=== PATIENT | male | born 1965 | race Caucasian/White ===

== ENCOUNTER 2024-11-15 19:22 | Emergency (ER) | payer BC, SELFPAY ==
[2024-11-15 19:24] VITALS: BP 146/102
[2024-11-15 19:56] LABS: Urine Character Clear (Clear)
[2024-11-15 19:57] LABS: Hematocrit 43.6 % (39.0-52.0); Hemoglobin 14.7 g/dL (13.0-18.0); Mean Corp Hgb Conc. 33.7 g/dL (33.0-37.0); Mean Corpuscular Volume 88.3 fL (80.0-94.0); Nucleated Red Blood Cells % 0 % (-); Platelet Count 245 10^3/uL (130-400); Red Cell Dist. Width 14.1 % (11.5-14.5)
[2024-11-15 20:08] LABS: Urine Red Blood Cell 40-50 /HPF (0-2); Urine Squamous Cell 0-2 /LPF (Few)
[2024-11-15 20:10] LABS: ALT (SGPT) 31 U/L (0-50); AST (SGOT) 27 U/L (17-59); Albumin 4.8 g/dl (3.5-5.0); Alkaline Phosphatase 91 U/L (38-126); Blood Urea Nitrogen 23 mg/dl (9-20); Calcium 9.9 mg/dl (8.4-10.2); Carbon Dioxide 28 mmol/L (22-30); Chloride 106 mmol/L (98-107); Glucose 126 mg/dl (70-99); Potassium 4.4 mmol/L (3.5-5.1); Sodium 140 mmol/L (135-145); Total Protein 8.2 g/dl (6.3-8.2); eGFR > 60.00
[2024-11-15] MEDS: ROXICODONE 5 MG PO (23:00)
[2024-11-15] MEDS: TORADOL 30 MG IM (23:00)
[2024-11-15 23:03] VITALS: BMI 40.1
[2024-11-15 23:50] VITALS: BP 165/80
--- NOTE | 2024-11-16 00:39 | ED.GENMED ---
History of Present Illness
General
Chief Complaint: Back Pain
Time Seen by Provider: 11/15/24 22:39
History of Present Illness
History of Present Illness:
59-year-old male presents to the emergency department for evaluation of left flank pain for the past several days. Saw his urologist as an outpatient earlier this week and was ordered a CT scan but has not yet obtained this. Pain increased today
despite ibuprofen use. Has a history of frequent recurrent kidney stones, states he has passed stones his largest 10 mm in the past. Is never required stenting
Review of Systems
Review of Systems
Allergies reviewed?: Yes
All Other Systems: ROS reviewed and negative except as documented in HPI and ROS
Phy Exam
Physical Exam
Physical Exam:
GEN: Well appearing, NAD, WDWN
HEENT: Oral mucosa moist, no scleral icterus
Cardiac: Regular rate
Lung: No respiratory distress, no tachypnea
MSK: No gross deformity or injuries
Skin: Good color, no pallor or jaundice, no rashes
Neuro: AO x3, moves all extremities freely
Psych: Calm, cooperative
Course
Orders/Labs/Results
Orders:
Orders
11/15/24 19:42
Complete Blood Count/With Diff Urgent
Comprehensive Metabolic Panel Urgent
Urinalysis Reflex To Culture Urgent
Date Specimen was Collected: 11/15/24
Time Specimen was Collected: 19:28
Urine Microscopic Reflex Cult Urgent
11/15/24 22:40
CT Abd/pel Without Iv Or Oral Urgent
Comment:
Reason For Exam: Flank pain
11/15/24 22:54
Ketorolac [Toradol] 30 mg IM NOW STA
Oxycodone [Roxicodone] 5 mg PO NOW STA
Abnormal Lab Results
11/15/24
19:42
WBC 15.6 H 10^3/uL
(4.8-10.8)
Abs Immat Gran (auto) 0.1 H 10^3/uL
(0-0.05)
Absolute Neuts (auto) 12.8 H 10^3/uL
(1.4-6.5)
Absolute Monos (auto) 0.8 H 10^3/uL
(0.1-0.6)
Neutrophils % 82.6 H %
(42.2-75.2)
Lymphocytes % 11.3 L %
(20.5-51.1)
BUN 23 H mg/dl
(9-20)
Glucose 126 H mg/dl
(70-99)
Ur Occult Blood Reflex 4+ A
(Negative)
Urine RBC 40-50 A /HPF
(0-2)
Urine Albumin (Reflex) 1+ A
(Neg - Trace)
11/15/24 19:42
11/15/24 19:42
Vital Signs
Initial and Last Documented VS:
Initial Vital Signs
Temp Pulse Resp BP Pulse Ox
99.3 F 90 18 146/102 97
11/15/24 19:24 11/15/24 19:24 11/15/24 19:24 11/15/24 19:24 11/15/24 19:24
Last Documented Vital Signs
Temp Pulse Resp BP Pulse Ox
99.3 F 79 18 165/80 98
11/15/24 19:24 11/15/24 23:50 11/15/24 19:24 11/15/24 23:50 11/16/24 00:40
MDM/Problems Addressed
MDM/Problems Addressed:
Imaging reveals a large stone measuring 10 x 8 x 11 mm. The patient was offered admission for ureteral stenting however he declines as he would prefer to follow-up with his outpatient urologist. Given that his pain is well-controlled with just 2
doses of medicine this is reasonable. Will continue Flomax and I provided him with Toradol and oxycodone for home use. ED return parameters discussed
*Pulse Oximetry
SaO2: 98
Patient hypoxic: no
*Critical Care Note
Total Time (30-74mins, 75-104mins- exclusive of procedures): Not Applicable
ED Attending Note
-
Portions of this chart may have been created with voice recognition software.� Occasional wrong word or��sound alike� substitutions may have occurred due to the inherent limitations of voice recognition software.
Discharge Plan
Departure
Patient Disposition: Home (Routine Discharge)
Date of Disposition: 11/16/24
Time of Disposition: 00:39
Patient with high blood pressure during this ER visit?: No
Discharge Problem:
Ureterolithiasis
Instructions: Kidney stones in adults - ED discharge instructions
Prescriptions:
New
oxycodone 5 mg tablet
5 mg PO TID PRN (Reason: Pain) Qty: 10 0RF
ketorolac 10 mg tablet
10 mg PO Q8H PRN (Reason: Pain) Qty: 15 0RF
Rx Instructions:
maximum total duration of 5 days from all oral, intranasal, or parenteral formulations
Referrals:
Joey Allen DO [Family Provider, Family Practice]
Activity Restrictions/Additional Instructions:
You have a 11 x 8 x 10mm stone. Please follow up with your urologist for this, or return to the ER if your symptoms worsen
Interventions
Interventions:
*Risk Screen - Suicide Last Done: 11/15/24 19:28
*General Assessment Last Done: 11/15/24 23:04
*Neglect/Abuse Screening Last Done: 11/15/24 19:28
*ED- Fall Risk Assessment Last Done: 11/15/24 23:04
*ED COVID-19 Vaccine History Last Done: 11/15/24 23:04
*Nursing Disposition Last Done: 11/16/24 00:53
ED-Musculoskeletal Assessment Last Done: 11/15/24 23:04
Discharge Date and Time
Discharge Date/Time: 11/16/24 00:57
Print Language: LEBANESE
== END 2024-11-16 00:57 | disposition home or self-care (01) ==
LOC: EMR 19:22
PROVIDERS: Emergency Medicine; EMERGENCY PHYSICIAN Emergency Medicine; FAMILY PHYSICIAN Family Medicine Adult Medicine
DX: N20.2 Calculus of kidney with calculus of ureter (principal); Z87.442 Personal history of urinary calculi
CPT/HCPCS: 99285; 96372; 74176; 80053; 81003; 81015; 85025

== ENCOUNTER 2024-11-16 20:38 | Inpatient (IN) | payer BC, SELFPAY ==
[2024-11-16 16:33] VITALS: BP 159/87
[2024-11-16 19:05] VITALS: BMI 41.2
[2024-11-16 19:07] VITALS: BP 124/82
[2024-11-16] MEDS: ZOFRAN 4 MG IV (19:18)
[2024-11-16] MEDS: TORADOL 15 MG IV (19:19)
[2024-11-16 19:23] LABS: Hematocrit 40.8 % (39.0-52.0); Hemoglobin 13.6 g/dL (13.0-18.0); Mean Corp Hgb Conc. 33.3 g/dL (33.0-37.0); Mean Corpuscular Volume 90.1 fL (80.0-94.0); Nucleated Red Blood Cells % 0 % (-); Platelet Count 193 10^3/uL (130-400); Red Cell Dist. Width 14.1 % (11.5-14.5)
[2024-11-16 19:41] LABS: Blood Urea Nitrogen 32 mg/dl (9-20); Calcium 8.8 mg/dl (8.4-10.2); Carbon Dioxide 24 mmol/L (22-30); Chloride 106 mmol/L (98-107); Estimated Creatinine Clearance 56 ml/min; Glucose 102 mg/dl (70-99); Sodium 136 mmol/L (135-145); eGFR 52.64
--- NOTE | 2024-11-16 19:50 | ED.GENMED ---
History of Present Illness
General
Chief Complaint: Flank Pain
Source: patient
Exam Limitations: none
Time Seen by Provider: 11/16/24 18:51
Nursing documentation reviewed up to this point in time: agreed with
History of Present Illness
History of Present Illness:
59-year-old male past medical history of hypertension hyperlipidemia presenting to the emergency department today with concerns of ongoing discomfort. Has a known 1 cm ureteral stone. Was here 1 day ago where this was confirmed on CT scan. Was
treated with medications and symptoms were controlled at time of discharge previously. At home he had difficulty tolerating symptoms which prompted him to return further assessment.
Review of Systems
Review of Systems
Allergies reviewed?: Yes
All Other Systems: ROS reviewed and negative except as documented in HPI and ROS
Phy Exam
Physical Exam
Physical Exam:
GENERAL: Alert , in no apparent distress
EYE: pupils equal and reactive
NECK: Supple, no significant adenopathy.
ENT: o/p clr, mmm.
CARDIAC: Regular rate and rhythm .
LUNGS: Clear breath sounds bilaterally, no acute respiratory distress, no wheezes/rales/rhonchi
ABDOMEN: Soft, without focal tenderness, no r/g, no cvat
NEUROLOGICAL: Alert and oriented, no focal neuro deficits
SKIN: Warm and dry, skin intact.
MUSCULOSKELETAL: No edema, well perfused.
PSYCH: Normal and appropriate interaction.
Course
Orders/Labs/Results
Orders:
Orders
11/16/24 19:16
Ketorolac [Toradol] 15 mg .ROUTE .STK-MED ONE
Ondansetron Injectable [Zofran] 4 mg .ROUTE .STK-MED ONE
11/16/24 19:17
Basic Metabolic Panel Urgent
Complete Blood Count/With Diff Urgent
11/16/24 19:18
Ondansetron Injectable [Zofran] 4 mg IV NOW STA
11/16/24 19:19
Ketorolac [Toradol] 15 mg IV NOW STA
11/16/24 19:53
0.9% Sodium Chloride 1000 ml [Nss] 1,000 ml IV BOLUS
Abnormal Lab Results
11/16/24
19:17
WBC 11.8 H 10^3/uL
(4.8-10.8)
RBC 4.53 L 10^6/uL
(4.70-6.10)
MPV 10.7 H fL
(7.4-10.4)
Absolute Neuts (auto) 8.3 H 10^3/uL
(1.4-6.5)
Absolute Monos (auto) 0.9 H 10^3/uL
(0.1-0.6)
Lymphocytes % 19.7 L %
(20.5-51.1)
BUN 32 H mg/dl
(9-20)
Creatinine 1.5 H mg/dL
(0.7-1.3)
Glucose 102 H mg/dl
(70-99)
11/16/24 19:17
11/16/24 19:17
Vital Signs
Initial and Last Documented VS:
Initial Vital Signs
Temp Pulse Resp BP Pulse Ox
98.2 F 76 18 159/87 96
11/16/24 16:33 11/16/24 16:33 11/16/24 16:33 11/16/24 16:33 11/16/24 16:33
Last Documented Vital Signs
Temp Pulse Resp BP Pulse Ox
98.2 F 76 18 124/82 96
11/16/24 16:33 11/16/24 16:33 11/16/24 16:33 11/16/24 19:07 11/16/24 19:51
MDM/Problems Addressed
MDM/Problems Addressed:
59-year-old male presenting with concern of severe flank pain associated nausea. He has a known 1 cm ureteral stone. Symptoms poorly controlled at home despite adequate medications with opioid pain medication NSAID and Zofran. Concerning this
plan to admit. Case was discussed with urology that recommended n.p.o. overnight for likely stenting tomorrow morning.
*Pulse Oximetry
SaO2: 96
Oxygen Mode of Delivery: Room air
Patient hypoxic: no (96)
*Critical Care Note
Total Time (30-74mins, 75-104mins- exclusive of procedures): Not Applicable
ED Attending Note
-
Portions of this chart may have been created with voice recognition software.� Occasional wrong word or��sound alike� substitutions may have occurred due to the inherent limitations of voice recognition software.
Discharge Plan
Departure
Patient Disposition: Admit
Date of Disposition: 11/16/24
Time of Disposition: 20:00
Admit to: Med/Surg
Admit to doctor: Afia
Presentation/result/management discussed w/ accepting MD/DO: Hospitalist
Patient with high blood pressure during this ER visit?: No
Condition: Good
Covid-19: Not Applicable
Discharge Problem:
Ureterolithiasis
Prescriptions:
No Action
oxycodone 5 mg tablet
5 mg PO TID PRN (Reason: Pain) Qty: 10 0RF
ketorolac 10 mg tablet
10 mg PO Q8H PRN (Reason: Pain) Qty: 15 0RF
Rx Instructions:
maximum total duration of 5 days from all oral, intranasal, or parenteral formulations
Referrals:
Joey Allen DO [Family Provider, Family Practice]
Interventions
Interventions:
*Risk Screen - Suicide Last Done: 11/16/24 16:35
*General Assessment Last Done: 11/16/24 16:33
*Neglect/Abuse Screening Last Done: 11/16/24 19:04
*ED- Fall Risk Assessment Last Done: 11/16/24 19:04
*ED COVID-19 Vaccine History Last Done: 11/16/24 19:04
FC-Hethxb-Csnxizvpzu Assessment Last Done: 11/16/24 19:12
ED-Male Genitourinary Assessment Last Done: 11/16/24 19:12
Discharge Date and Time
Print Language: UKRAINIAN
--- NOTE | 2024-11-16 20:00 | HPS.HSE ---
Family Physician
-
Family Physician: Joey Allen
Chief Complaint
-
left flank pain associated with nausea
History of Present Illness
59-year-old male past medical history of hypertension hyperlipidemia, BPH, asthma, BERNABE presenting to the emergency department today with concerns of left flank pain for past 5-6 days. patient stated nausea and retching. he complained of chills. he
is been dealing with URI for past several week for which he was recently put on doxycycline. denied fever. denied MUNOZ, dizzy or syncope. denied abdominal pain,n,v,d. denied dysuria or hematuria.
CT with the impression of 10 x 8 x 11 mm calculus in the proximal left ureter with moderate left renal collecting system dilatation and perinephric stranding.Bilateral nonobstructing renal calculi.Colonic diverticulosis.Likely mildly enlarged
prostate gland.
Patient received a dose of Toradol, #, Zofran in ER. Admitted for further management
Medical History
Past Medical History
Past Medical History: Reports Other
Additional Past Medical History:
Hypertension
BERNABE
Hyperlipidemia
Past Surgical History: Reports Other
Additional Past Surgical History:
You book: Inguinal hernia repair
Lumbar spine surgery
Cervical spine surgery
Cyst removed from the back
Richey tooth extraction
Social History
Tobacco: Non-smoker
Alcohol: None
Drug: None
Living: With Family
Family History
Family History: Not pertinent
Allergies / Home Medications
Allergies reflects when Allergies were last updated in [employer].
Home Medications with original date entered in [employer]
Allergy/Medication List:
Allergies
Allergy/AdvReac Type Severity Reaction Status Date / Time
No Known Allergies Allergy Unverified 11/16/24 16:33
Home Medications
ketorolac 10 mg tablet 10 mg PO Q8H PRN Pain #15 tabs 11/16/24
oxycodone 5 mg tablet 5 mg PO TID PRN Pain #10 tabs 11/16/24
Review of Systems
-
Constitutional: Reports No Symptoms
EENT: Reports No Symptoms
Respiratory: Reports No Symptoms
Cardiac: Reports No Symptoms
Abdomen/GI: Reports Nausea
: Reports Flank Pain
Musculoskeletal: Reports No Symptoms
Skin: Reports No Symptoms
Neurological: Reports No Symptoms
Endocrine: Reports No Symptoms
Hematologic/Lymphatic: Reports No Symptoms
Psych: Reports No Symptoms
Physical Exam
Vital Signs
Vital Signs
Temp Pulse Resp BP Pulse Ox
98.2 F 76 18 124/82 96
11/16/24 16:33 11/16/24 16:33 11/16/24 16:33 11/16/24 19:07 11/16/24 19:51
Physical Exam
General: Well Developed, Well Nourished and No Apparent Distress
HEENT: NormoCephalic, Moist mucous membranes and Atraumatic
Respiratory: Clear
Cardiac: S1/S2 and Regular Rhythm; No Murmur or Rub
GI: Soft, Non Tender, Non Distended and Normal Bowel Sounds; No Organomegaly
Rectal: Deferred by Provider
Musculoskeletal: No Clubbing, No Cyanosis and No Edema
Skin: No Rash
Neuro: AO x 3 and Nonfocal/grossly intact
Psych: Calm
Laboratory Results
-
11/16/24 19:17
11/16/24 19:17
Laboratory Results
Total Bilirubin Cancelled 11/16/24 19:17
AST Cancelled 11/16/24 19:17
ALT Cancelled 11/16/24 19:17
Alkaline Phosphatase Cancelled 11/16/24 19:17
Data Reviewed
-
CT Scan: Report Reviewed by me
Lab Data: Labs Reviewed by me
Impression/Plan
-
# Left ureter ureteral stone
- Will keep patient n.p.o. after midnight
- Plan for stent in the morning
- Dilaudid as needed for pain
- Strain urine
- Flomax continue
- Urology consulted
- WBC 11.8
- CT with impression of 10 x 8 x 11 mm calculus in the proximal left ureter with moderate left renal collecting system dilatation and perinephric stranding.Bilateral nonobstructing renal calculi.
# Acute kidney injury likely from dehydration/ureteral stone
- Creatinine 1.5, BUN 32
- Fluids continued
- Monitor BMP in a.m.
# BPH
- Tadalafil and Flomax continued
# History of asthma
- Patient not in acute exacerbation
- Singulair continue
# Hyperlipidemia
- Zetia continued
# Essential hypertension
- Norvasc continue with hold parameters
- Hold irbesartan due to RAVINDER
# Back pain
- Gabapentin continue
#URI
-doxy continued
# DVT prophylaxis
- SCDs
# CODE STATUS
- Full code
--- NOTE | 2024-11-16 20:01 | W.PN.UPDATE ---
Update Note
Progress Note Update
Patient seen in conjunction with CLEANING TECHNICIAN. I agree with the findings and history vehicle. I concur with assessment and plan listed otherwise.
Briefly, this is a 59-year-old with past medical history of hypertension hyperlipidemia, recurrent nephrolithiasis with a history of passing several stones also has largest 1 cm presenting to the Emergency Department with flank pain. Patient was
seen in the emergency department 1 day ago and was found to have a 1 cm ureteral stone in in the proximal left ureter with moderate left renal collecting system dilatation and perinephric stranding. His renal function was normal at that time.
Patient returned home only to return with intractable pain and nausea. He has no fevers or chills. No vomiting. UA was unremarkable for an acute infection. Creatinine today is elevated to 1.5. Labs are otherwise unremarkable
A&P
Likely obstructing left-sided 1 cm proximal left ureteral stone with mild RAVINDER
- admit to med/surg
- npo after midnight
- plan for or in am
- continue analgesics, tamsulosin and iv fluids
- strain urine
DVT PPX - SCDs for now
Code status - Full Code
[2024-11-16] MEDS: NSS 1000 IV ×2 (20:31→23:06)
[2024-11-16 20:43] LABS: Urine Character Clear (Clear)
[2024-11-16 20:57] LABS: Urine Red Blood Cell 0-2 /HPF (0-2); Urine Squamous Cell None seen /LPF (Few); Urine White Cell 0-2 /HPF (0-5)
--- NOTE | 2024-11-16 21:49 | PTCARENOTE ---
Patient arrived from ED to [facility], AAOX3 very pleasant. IVF infusing per order. VSS, no c/o pain at this time. Plan of care explained, assessment on going.
[2024-11-16 21:55] VITALS: BP 118/68
[2024-11-16 21:56] VITALS: BMI 40.1
[2024-11-16] MEDS: NEURONTIN 100 MG PO (23:05)
[2024-11-16 23:25] VITALS: BP 124/74
[2024-11-16] MEDS: NEURONTIN 300 MG PO (23:35)
[2024-11-16] MEDS: DILAUDID 0.5 MG IV (23:38)
[2024-11-17 06:23] LABS: Hematocrit 38.0 % (39.0-52.0); Hemoglobin 12.6 g/dL (13.0-18.0); Mean Corp Hgb Conc. 33.2 g/dL (33.0-37.0); Mean Corpuscular Volume 89.8 fL (80.0-94.0); Platelet Count 175 10^3/uL (130-400); Red Cell Dist. Width 14.1 % (11.5-14.5)
[2024-11-17 06:54] LABS: Blood Urea Nitrogen 29 mg/dl (9-20); Calcium 7.9 mg/dl (8.4-10.2); Carbon Dioxide 23 mmol/L (22-30); Chloride 109 mmol/L (98-107); Estimated Creatinine Clearance 49 ml/min; Glucose 100 mg/dl (70-99); Potassium 4.3 mmol/L (3.5-5.1); Sodium 138 mmol/L (135-145); eGFR 45.30
--- NOTE | 2024-11-17 07:51 | CONS.URO ---
Consultation
-
Date/Time Consultation Performed: 11/17/2024 0745
Requesting Provider: ED
Performing Provider: Farrukh
Reason for Consultation: urolithiasis
Medical History
History of Present Illness
ED note: '59-year-old male presenting to the emergency department today with concerns of left flank pain for past 5-6 days. patient stated nausea and retching. he complained of chills. he is been dealing with URI for past several week for which he
was recently put on doxycycline. denied fever. denied MUNOZ, dizzy or syncope. denied abdominal pain,n,v,d. denied dysuria or hematuria.
CT with the impression of 10 x 8 x 11 mm calculus in the proximal left ureter with moderate left renal collecting system dilatation and perinephric stranding.Bilateral nonobstructing renal calculi.'
long-standing patient of urologist Umesh Ortega DO -- 'he retired, but I saw one of his partners 3 days ago . . . long history of stones'
Past Medical History
Past Medical History: Other (obesity, nephrolithiasis, hypertension, hyperlipidemia, BPH, asthma, BERNABE)
Allergies/Home Medications
Allergies
Allergy/AdvReac Type Severity Reaction Status Date / Time
No Known Allergies Allergy Unverified 11/16/24 16:33
Home Medications
�Medication �Instructions �Recorded �Confirmed �Type
allopurinol 300 mg tablet 300 mg PO DAILY 11/16/24 11/16/24 History
amlodipine 5 mg tablet (Norvasc) 5 mg PO DAILY 11/16/24 11/16/24 History
doxycycline monohydrate 100 mg 100 mg PO BID 11/16/24 11/16/24 History
tablet
ezetimibe 10 mg tablet (Zetia) 10 mg PO DAILY 11/16/24 11/16/24 History
gabapentin 100 mg capsule 100 mg PO HS 11/16/24 11/16/24 History
gabapentin 300 mg capsule 300 mg PO TID 11/16/24 11/16/24 History
irbesartan 75 mg tablet 75 mg PO DAILY 11/16/24 11/16/24 History
montelukast 10 mg tablet 10 mg PO DAILY 11/16/24 11/16/24 History
(Singulair)
tadalafil 5 mg tablet 5 mg PO DAILY 11/16/24 11/16/24 History
tamsulosin 0.4 mg capsule (Flomax) 0.8 mg PO DAILY PRN kidney stones 11/16/24 11/16/24 History
Physical Exam
Vital Signs
Vital Signs
Temp Pulse Resp BP Pulse Ox
98.7 F 66 17 124/74 96
11/16/24 23:25 11/16/24 23:25 11/16/24 23:25 11/16/24 23:25 11/16/24 23:25
Lab / Testing Results
Laboratory Results
11/17/24 05:07
11/17/24 05:07
Physical Exam
adult male in bed, obese
General: No Apparent Distress
Neuro: Awake
Psych: Calm
Assessment / Plan
-
Large, obstructing, left Ureteral Stone
Numerous, bilateral renal stones
Plan: cysto, left ureteral stenting
Data Reviewed
-
CT Scan: Image personally visualized and interpreted
Lab Data: Labs Reviewed
Old Records: Reviewed
[2024-11-17 08:05] VITALS: BP 149/85
--- NOTE | 2024-11-17 08:56 | W.PN.UPDATE ---
Update Note
Progress Note Update
Subsequent conversation with patient and at bedside:
Patient has opted to cancel surgery.
reports that he has always been able to pass stones historically.
Size and position of left ureteral stone explained -- spontaneous passage is statistically unlikely. Also, significant renal stone burden explained.
Surgery canceled per patient and 's request.
Patient will f/u with his established urology group as an outpatient.
All questions answered.
[2024-11-17] MEDS: ZETIA 10 MG PO (08:59)
[2024-11-17] MEDS: NEURONTIN 300 MG PO ×3 (08:59→16:31)
[2024-11-17] MEDS: VIBRAMYCIN 100 MG PO ×2 (08:59→20:41)
[2024-11-17] MEDS: SINGULAIR 10 MG PO (08:59)
[2024-11-17] MEDS: FLOMAX 0.4 MG PO ×2 (08:59→21:43)
[2024-11-17] MEDS: NORVASC 5 MG PO (09:00)
--- NOTE | 2024-11-17 11:03 | W.PN.UPDATE ---
Update Note
Progress Note Update
CT scan reviewed with pt and .
He now agrees to be scheduled Monday for OR.
Additionally, urine will be alkalinized given patient's h/o uric acid stone composition.
--- NOTE | 2024-11-17 12:32 | W.PN.HOSP.TC ---
Today's Communication/Plan
-
IVF
Cysto and Stent tomorrow 11/18
Monitor Renal Function
Assessment / Plan
Assessment / Plan
Physical Exam
General: Well Developed, Well Nourished and No Apparent Distress
HEENT: NormoCephalic, Moist mucous membranes and Atraumatic
Respiratory: Clear
Cardiac: S1/S2 and Regular Rhythm; No Murmur or Rub
GI: Soft, Non Tender, Non Distended and Normal Bowel Sounds; No Organomegaly
Rectal: Deferred by Provider
Musculoskeletal: No Clubbing, No Cyanosis and No Edema
Skin: No Rash
Neuro: AO x 3 and Nonfocal/grossly intact
Psych: Calm
# Left ureter ureteral stone
#Nephrolithiasis
#Large, obstructing, left Ureteral Stone
#Numerous, bilateral renal stones
�10 x 8 x 11 mm calculus in the proximal left ureter with moderate left renal collecting system dilatation and perinephric stranding
- n.p.o. after midnight
- Cystoscopy and plan for stent in the morning
- Dilaudid as needed for pain
- Strain urine
- Flomax continue
- Urology consulted
- Urine will be optimized given patient's history of uric acid stone composition
# Acute kidney injury likely 2/2 to obstructing ureteral stone
- Fluids continued
- Monitor BMP in a.m.
-Monitor with urological intervention
# BPH
- Tadalafil and Flomax continued
# History of asthma
- Patient not in acute exacerbation
- Singulair continue
# Hyperlipidemia
- Zetia continued
# Essential hypertension
- Norvasc continue with hold parameters
- Hold irbesartan due to RAVINDER
# Back pain
- Gabapentin continue
#URI
-doxy continued
# DVT prophylaxis
- SCDs
# CODE STATUS
- Full code
Anticipated Discharge: 24 - 48 hours
Subjective/Interval History
-
Date of Service: November 17, 2024
no acute events
Objective Data
-
Labs:
Laboratory Results
11/17/24
05:07
WBC 7.8
Hgb 12.6 L
Hct 38.0 L
Plt Count 175
Sodium 138
Potassium 4.3
Chloride 109 H
Carbon Dioxide 23
BUN 29 H
Creatinine 1.7 H
Glucose 100 H
Calcium 7.9 L
Vital Signs:
Vital Signs
Temp Pulse Resp BP Pulse Ox
98.7 F 70 16 149/85 97
11/17/24 08:05 11/17/24 09:00 11/17/24 08:05 11/17/24 09:00 11/17/24 08:05
I&O
11/16/24 11/17/24 11/18/24
06:59 06:59 06:59
Intake Total 1000 / 1000
Balance 1000 / 1000
Review of Systems
-
History Source: Patient
All other systems: Not reviewed unless documented
Data Reviewed
-
CT Scan: Report Reviewed by me
Labs: Labs Reviewed by me
--- NOTE | 2024-11-17 13:33 | CM ---
Addendum entered by Fausto Larry 11/17/24 13:40:
Anticipate home with no needs.
Original Note:
Initial assessment completed with patient and . They live in a rancher plus basement home with 1 step to enter. [employer] patient was independent in ambulation and ADL's and drove. Does have and uses a CPAP at [facility]. No in-home services. No HC-POA.
PCP is Dr. Joey Allen and Pharmacy is [facility] in [place].
[2024-11-17] MEDS: NSS 1000 IV (14:17)
[2024-11-17 15:40] VITALS: BP 139/78
[2024-11-17] MEDS: DILAUDID 0.5 MG IV (17:40)
[2024-11-17] MEDS: ZOFRAN 4 MG IV (17:54)
[2024-11-17] MEDS: TYLENOL 650 MG PO (20:47)
[2024-11-17] MEDS: NEURONTIN 100 MG PO (21:43)
[2024-11-17 23:20] VITALS: BP 108/61
[2024-11-18] VITALS (10 sets, daily range): BP systolic 114–146; BP diastolic 63–88
[2024-11-18] MEDS: NSS 1000 IV ×2 (01:32→11:44)
[2024-11-18 06:58] LABS: Hematocrit 39.0 % (39.0-52.0); Hemoglobin 12.8 g/dL (13.0-18.0); Mean Corp Hgb Conc. 32.8 g/dL (33.0-37.0); Mean Corpuscular Volume 89.9 fL (80.0-94.0); Platelet Count 173 10^3/uL (130-400); Red Cell Dist. Width 13.8 % (11.5-14.5)
[2024-11-18 07:20] LABS: Blood Urea Nitrogen 23 mg/dl (9-20); Calcium 8.7 mg/dl (8.4-10.2); Carbon Dioxide 26 mmol/L (22-30); Chloride 111 mmol/L (98-107); Estimated Creatinine Clearance 70 ml/min; Glucose 114 mg/dl (70-99); Potassium 4.4 mmol/L (3.5-5.1); Sodium 139 mmol/L (135-145); eGFR > 60.00
--- NOTE | 2024-11-18 08:32 | W.PN.HOSP.TC ---
Today's Communication/Plan
-
OR today
Assessment / Plan
Assessment / Plan
Impression:
Patient is a pleasant 59 years old male with a history of BPH, asthma, hyperlipidemia, hypertension who admitted with Left ureteral stone, obstructive along with perinephric stranding. �Resulting in RAVINDER. �Cystoscopy and plan for stenting 11/18
Assessment/plan:
# Left ureter ureteral stone
#Nephrolithiasis
#Large, obstructing, left Ureteral Stone
#Numerous, bilateral renal stones
�10 x 8 x 11 mm calculus in the proximal left ureter with moderate left renal collecting system dilatation and perinephric stranding
- n.p.o. after midnight
- Cystoscopy and plan for stent in the morning
- Dilaudid as needed for pain
- Strain urine
- Flomax continue
- Urology consulted
- Urine will be optimized given patient's history of uric acid stone composition
# Acute kidney injury likely 2/2 to obstructing ureteral stone
- Fluids continued
- Creatinine improved
-Monitor with urological intervention
# BPH
- Tadalafil and Flomax continued
# History of asthma
- Patient not in acute exacerbation
- Singulair continue
# Hyperlipidemia
- Zetia continued
# Essential hypertension
- Norvasc continue with hold parameters
- Hold irbesartan due to RAVINDER
# Back pain
- Gabapentin continue
#URI
-doxy continued
CODE STATUS: Full code
DVT prophylaxis: SCD
Diet: N.p.o. for OR today.
Total time spent on today's encounter was 55 minutes which included time spent in counseling the patient/family regarding diagnosis and treatment plan as listed above, goals of care, and symptom management. Case was discussed with nursing staff,
specialists, and care coordinators/case management. All labs and imaging personally reviewed by me. Remainder the time spent in detailed review of previous records, lab data, imaging, and other medical provider documentation.
Anticipated Discharge: Within 24 hours
Subjective/Interval History
-
Date of Service: November 18, 2024
Patient seen and examined at bedside, denies any chest pain or shortness of breath, no abdominal pain, no nausea, no vomiting, no diarrhea or constipation.
Objective Data
-
Labs:
Laboratory Results
11/18/24
06:41
WBC 6.7
Hgb 12.8 L
Hct 39.0
Plt Count 173
Sodium 139
Potassium 4.4
Chloride 111 H
Carbon Dioxide 26
BUN 23 H
Creatinine 1.2
Glucose 114 H
Calcium 8.7
Vital Signs:
Vital Signs
Temp Pulse Resp BP Pulse Ox
98.2 F 71 16 146/82 96
11/18/24 08:12 11/18/24 08:12 11/18/24 08:12 11/18/24 08:12 11/18/24 08:12
I&O
11/17/24 11/18/24 11/19/24
06:59 06:59 06:59
Intake Total 1000 / 1000 1200 / 1200
Balance 1000 / 1000 1200 / 1200
Physical Exam
-
General: Well Developed, Well Nourished, No Apparent Distress and Comfortable
HEENT: Normocephalic, Atraumatic, Moist Mucous Membranes, No Ptosis, PERRLA and Nose Appears Normal
Respiratory: Clear to Auscultation and Non Labored Respirations
Cardiac: Regular Rhythm and S1/S2
Breast: Deferred by me
GI: Soft, Nontender, Nondistended and Normal Bowel Sounds
Genito-urinary: No Costovertebral Tender
Musculoskeletal: No Clubbing, No Cyanosis and No Edema
Skin: Warm
Neuro: Awake, Alert, Oriented, AO x 3 and No Motor Deficits
Psych: Calm
Data Reviewed
-
Diagnostic Radiology: Image personally visualized and interpreted and Report Reviewed by me
CT Scan: Image personally visualized and interpreted and Report Reviewed by me
Ultrasound: Image personally visualized and interpreted and Report Reviewed by me
MRI: Image personally visualized and interpreted and Report Reviewed by me
Medical Tests (Nuc Med, Echo etc): Image personally visualized and interpreted and Report Reviewed by me
Labs: Labs Reviewed by me
Old Records: Reviewed
[2024-11-18] MEDS: ZETIA 10 MG PO (09:51)
[2024-11-18] MEDS: NEURONTIN 300 MG PO ×3 (09:51→16:51)
[2024-11-18] MEDS: FLOMAX 0.4 MG PO (09:52)
[2024-11-18] MEDS: NORVASC 5 MG PO (09:52)
[2024-11-18] MEDS: VIBRAMYCIN 100 MG PO (09:52)
[2024-11-18] MEDS: SINGULAIR 10 MG PO (09:52)
--- NOTE | 2024-11-18 10:52 | CM ---
Reviewed the chart notes and spoke with the patient at the bedside. Patient anticipates going to OR for cysto and left ureteral stenting. CM continues to be available to patient/family and is monitoring medical plan for needs at discharge.
Plan: Discharge plans will depend on the patient's progress.
--- NOTE | 2024-11-18 13:11 | W.SUR.PREOP ---
Pre-Operative Surgical Note
-
I have examined this patient prior to the performance of the scheduled procedure.
The patient's condition is unchanged from the time of the current History and
Physical and the patient is able to undergo the scheduled procedure.
To OR for left ULS.
Surgical consent signed in preop holding.
--- NOTE | 2024-11-18 14:06 | W.IMMPOSTOP ---
Surgical Immed Post Op Note
-
Primary Surgeon: Dario
Pre-op Diagnosis: Large obstructing proximal left ureteral stone, non-obstructing bilateral renal stones, h/o uric acid (mixed composition) nephrolithiasis
Post-op Diagnosis: Same
Procedure Performed: left ULS
Anesthesia Type: LMA
Specimen / Cultures: Stones for analysis/None
Estimated Blood Loss: Negligible
Drains: 4.7Fr x 22 cm JJ left ureteral stent
Complications: None
Operative Findings:
High density large rounded stone (11-12 mm) encountered in proximal left ureter - manipulated into renal pelvis and fragmented until visualization obscured by debris.
Radiopaque stones noted within left renal calyces c/w patient's known stone burden.
Final KUB and cysto confirming appropriate stent position.
--- NOTE | 2024-11-18 14:25 | W.PN.UPDATE ---
Update Note
Progress Note Update
s/p left ULS (including stent placement) for large obstructing proximal left ureteral stone.
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
D/w spouse post-op (Miesha).
Plan for F/U in 1-2 weeks for preop visit to schedule outpatient ULS to address remaining stone burden in left kidney.
D/w Hospitalist - urologically fit for discharge.
[2024-11-18] MEDS: DETROL LA 4 MG PO (14:44)
--- NOTE | 2024-11-18 16:20 | W.DCSUMMARY ---
Discharge Summary
Discharge Data
Date of Admission: 11/16/24
Date of Discharge: 11/18/24
-
Pending Results: No
Hospital Course
Hospital course
Patient is a pleasant 59 years old male with a history of BPH, asthma, hyperlipidemia, hypertension who admitted with Left ureteral stone, obstructive along with perinephric stranding. �Resulting in RAVINDER. �
Kidney function improved.
Status post cystoscopy and stenting 11/18.
Patient cleared for discharge as per urology.
Patient seen and examined at bedside, denies any chest pain or shortness of breath, no abdominal pain, no nausea, no vomiting, no diarrhea or constipation.
During hospitalization patient was treated from the following
# Left ureter ureteral stone
#Nephrolithiasis
#Large, obstructing, left Ureteral Stone
#Numerous, bilateral renal stones
�10 x 8 x 11 mm calculus in the proximal left ureter with moderate left renal collecting system dilatation and perinephric stranding
- n.p.o. after midnight
- Cystoscopy and plan for stent in the morning
- Dilaudid as needed for pain
- Strain urine
- Flomax continue
- Urology consulted
- Urine will be optimized given patient's history of uric acid stone composition
# Acute kidney injury likely 2/2 to obstructing ureteral stone
- Fluids continued
- Creatinine improved
-Monitor with urological intervention
# BPH
- Tadalafil and Flomax continued
# History of asthma
- Patient not in acute exacerbation
- Singulair continue
# Hyperlipidemia
- Zetia continued
# Essential hypertension
- Norvasc continue with hold parameters
- Hold irbesartan due to RAVINDER
# Back pain
- Gabapentin continue
#URI
-doxy continued
CODE STATUS: Full code
DVT prophylaxis: SCD
Family communication: Discussed with at bedside.
Total time spent on today's encounter was 40 minutes which included time spent in counseling the patient/family regarding diagnosis and treatment plan as listed above, goals of care, and symptom management. Case was discussed with nursing staff,
specialists, and care coordinators/case management. All labs and imaging personally reviewed by me. Remainder the time spent in detailed review of previous records, lab data, imaging, and other medical provider documentation.
Anticipated Discharge: Today
Discharge Plan
-
Patient Disposition: Home (Routine Discharge)
Discharge Diagnosis/Procedures: Left ureter ureteral stone
Nephrolithiasis
Acute renal failure, resolved
Diet: Regular
Activity: No restrictions
Referrals:
Lazaro Bishop MD [Active, Urology]
Referral Note: Please call Dr. Bishop's office at [phone] to schedule a preop visit in 1-2 weeks. You will confirm a date for outpatient surgery (2nd stage procedure) to treat the remaining stones in your left kidney at that visit.
Joey Allen DO [Family Provider, Family Practice]
Prescriptions:
Continued
amlodipine [Norvasc] 5 mg Tablet
5 mg PO DAILY
doxycycline monohydrate 100 mg Tablet
100 mg PO BID
tamsulosin [Flomax] 0.4 mg Capsule
0.8 mg PO DAILY PRN (Reason: kidney stones)
gabapentin 300 mg Capsule
300 mg PO TID
irbesartan 75 mg Tablet
75 mg PO DAILY
montelukast [Singulair] 10 mg Tablet
10 mg PO DAILY
gabapentin 100 mg Capsule
100 mg PO HS
ezetimibe [Zetia] 10 mg Tablet
10 mg PO DAILY
tadalafil 5 mg Tablet
5 mg PO DAILY
allopurinol 300 mg Tablet
300 mg PO DAILY
Discharge Orders:
Discharge Patient (As Directed); Ordered 11/18/24
Ordered By: Jeri Piedra
Discharge Date and Time
Print Language: [id number]
[2024-11-18] MEDS: NSS IV (16:50)
== END 2024-11-18 18:30 | disposition home or self-care (01) | DRG 660 ==
LOC: 2 SOUTH 20:38
PROVIDERS: Physician Assistant; Registered Nurse; Surgery; ADMITTING PHYSICIAN Internal Medicine; ATTENDING PHYSICIAN General Practice; CONSULT PHYSICIAN Specialist; EMERGENCY PHYSICIAN Emergency Medicine; FAMILY PHYSICIAN Family Medicine Adult Medicine
PROC: 0TF78ZZ Fragmentation in Left Ureter, Via Natural or Artificial Opening Endoscopic (ICD-10-PCS; 2024-11-18)
PROC: 0T778DZ Dilation of Left Ureter with Intraluminal Device, Via Natural or Artificial Opening Endoscopic (ICD-10-PCS; 2024-11-18)
DX: N17.9 Acute kidney failure, unspecified (principal); N20.2 Calculus of kidney with calculus of ureter; Z68.41 Body mass index [BMI] 40.0-44.9, adult; I10 Essential (primary) hypertension; E78.5 Hyperlipidemia, unspecified; N40.0 Benign prostatic hyperplasia without lower urinary tract symptoms; J45.909 Unspecified asthma, uncomplicated; K75.81 Nonalcoholic steatohepatitis (NASH); J06.9 Acute upper respiratory infection, unspecified; E86.0 Dehydration; E66.9 Obesity, unspecified
CPT/HCPCS: 74018; 76000; 80048; 81003; 81015; 85025; 85027; 93005; 96361; 96374; 96375; 99284; C1769; C1894; C2617

== ENCOUNTER → 2024-12-05 08:45 | Outpatient (REF) | payer BC, SELFPAY | LOC: CLAB 08:45 | PROVIDERS: ATTENDING PHYSICIAN Surgery | DX: N13.2 Hydronephrosis with renal and ureteral calculous obstruction (principal); N20.0 Calculus of kidney | CPT/HCPCS: 82365 ==